=== PATIENT | male | born 1970 | race African-American/Black ===

== ENCOUNTER 2017-07-18 11:10 | Emergency (ER) | payer SELFPAY ==
[2017-07-18] MEDS ORDERED: Lidocaine 1% PF 5 ML VIAL ONE (11:59)
== END 2017-07-18 12:48 | disposition home or self-care (01) ==
LOC: ERS 11:10
DX: L02.211 Cutaneous abscess of abdominal wall (principal); E11.9 Type 2 diabetes mellitus without complications; E78.5 Hyperlipidemia, unspecified
CPT/HCPCS: 10060; J2001

== ENCOUNTER 2017-07-20 16:54 | Emergency (ER) | payer SELFPAY | END 2017-07-20 18:10 | disposition home or self-care (01) | LOC: ERS 16:54 | DX: L03.311 Cellulitis of abdominal wall (principal); E11.9 Type 2 diabetes mellitus without complications; E78.5 Hyperlipidemia, unspecified; I10 Essential (primary) hypertension | CPT/HCPCS: 99282 ==

== ENCOUNTER 2017-07-21 18:34 | Emergency (ER) | payer SELFPAY | END 2017-07-21 19:50 | disposition home or self-care (01) | LOC: ERS 18:34 | DX: L02.211 Cutaneous abscess of abdominal wall (principal); E11.9 Type 2 diabetes mellitus without complications; E78.5 Hyperlipidemia, unspecified; I10 Essential (primary) hypertension; Z79.891 Long term (current) use of opiate analgesic | CPT/HCPCS: 99282 ==

== ENCOUNTER 2017-10-03 10:58 | Emergency (ER) | payer SELFPAY ==
[2017-10-03 12:07] LABS: #Eosinphils 0.1 thou/uL (0.0-0.7); #Monocytes 0.3 thou/uL (0.11-0.59); #Neutrophils 2.3 thou/uL (1.40-6.50); %Basophils 0.2 % (0.0-1.0); %Eosinophils 2.3 % (0.0-10.0); %Lymphocytes 28.2 % (21.0-51.0); %Monocytes 7.2 % (0.0-10.0); Hematocrit 43.7 % (42.0-52.0); Mean Platelet Volume 8.3 fL (7.4-10.4); Red Blood Cell (RBC) Count 5.14 mill/uL (4.70-6.10); White Blood Cell (WBC) Count 3.6 thou/uL (4.8-10.8)
[2017-10-03 12:23] LABS: ALT (SGPT) 18 U/L (8-55); AST (SGOT) 18 U/L (5-34); Alkaline Phosphatase 94 U/L (40-150); Anion Gap 13 mmol/L (10-20); BUN (Urea Nitrogen) 13 mg/dL (8.9-20.6); Bilirubin, Total 0.8 mg/dL (0.2-1.2); Calc. Creatinine Clearance 0 mL/min (70-130); Calcium 9.3 mg/dL (7.8-10.44); Carbon Dioxide 23 mmol/L (22-29); Chloride 100 mmol/L (98-107); Estimated GFR-MDRD 61; Globulin 3.4 g/dL (2.4-3.5); Protein, Total 7.2 g/dL (6.0-8.3)
[2017-10-03] MEDS ORDERED: Insulin Regular 300 UNITS/3 ML VIAL ONE (14:13)
== END 2017-10-03 16:11 | disposition home or self-care (01) ==
LOC: ERS 10:58
DX: E11.65 Type 2 diabetes mellitus with hyperglycemia (principal); E78.5 Hyperlipidemia, unspecified; I10 Essential (primary) hypertension
CPT/HCPCS: 36415; 36416; 80053; 82010; 85025; 96374; J1815

== ENCOUNTER 2017-11-12 09:40 | Emergency (ER) | payer SELFPAY ==
[2017-11-12] MEDS ORDERED: Lidocaine 1% w/Epinephrine 1:100K 20 ML VIAL ONE (11:02)
== END 2017-11-12 11:58 | disposition home or self-care (01) ==
LOC: ERS 09:40
DX: L02.415 Cutaneous abscess of right lower limb (principal); L03.115 Cellulitis of right lower limb; E11.9 Type 2 diabetes mellitus without complications; E78.5 Hyperlipidemia, unspecified; I10 Essential (primary) hypertension; Z79.4 Long term (current) use of insulin
CPT/HCPCS: 10060; 87070; 87077; 87186; 87205; J2001

== ENCOUNTER 2018-02-05 18:48 | Emergency (ER) | payer MEDICAID ==
[2018-02-05] MEDS ORDERED: Ketorolac Tromethamine 60 MG/2 ML VIAL ONE (21:34)
== END 2018-02-05 21:54 | disposition home or self-care (01) ==
LOC: ERS 18:48
DX: S39.012A Strain of muscle, fascia and tendon of lower back, initial encounter (principal); E11.9 Type 2 diabetes mellitus without complications; E78.5 Hyperlipidemia, unspecified; I10 Essential (primary) hypertension; Z79.4 Long term (current) use of insulin; W19.XXXA Unspecified fall, initial encounter
CPT/HCPCS: 96372; J1885

== ENCOUNTER 2018-07-08 18:16 | Emergency (ER) | payer MEDICARE, MEDICAID ==
[2018-07-08 18:55] LABS: #Eosinphils 0.1 thou/uL (0.0-0.7); #Lymphocytes 0.9 thou/uL (1.20-3.40); #Monocytes 0.5 thou/uL (0.11-0.59); #Neutrophils 3.3 thou/uL (1.40-6.50); %Basophils 0.2 % (0.0-1.0); %Eosinophils 1.5 % (0.0-10.0); %Monocytes 10.7 % (0.0-10.0); %Neutrophils 68.6 % (42.0-75.0); Hemoglobin 12.9 g/dL (14.0-18.0); Mean Corpuscular HGB CONC 34.1 g/dL (32.0-36.0); Mean Corpuscular Hemoglobin 29.2 pg (27.0-31.0); Mean Corpuscular Volume 85.8 fL (78.0-98.0); Mean Platelet Volume 7.9 fL (7.4-10.4); Platelet Count 160 thou/uL (130-400); RBC Distribution Width 12.2 % (11.5-14.5); Red Blood Cell (RBC) Count 4.41 mill/uL (4.70-6.10); White Blood Cell (WBC) Count 4.8 thou/uL (4.8-10.8)
[2018-07-08 18:56] LABS: Bilirubin Negative (Negative); Blood, Urine Negative (Negative); Clarity CLEAR (Clear); Glucose, Urine (Dipstick) >=1000 mg/dL (Negative); Leukocyte Negative (Negative); Nitrite Negative (Negative); Protein, Urine (Dipstick) Negative (Neg-Trace); Specific Gravity, Urine 1.021 (1.002-1.036)
[2018-07-08 19:15] LABS: ALT (SGPT) 14 U/L (8-55); AST (SGOT) 13 U/L (5-34); Alkaline Phosphatase 89 U/L (40-150); Anion Gap 15 mmol/L (10-20); BUN (Urea Nitrogen) 14 mg/dL (8.9-20.6); Bilirubin, Total 0.7 mg/dL (0.2-1.2); Calc. Creatinine Clearance 0 mL/min (70-130); Calcium 9.5 mg/dL (7.8-10.44); Carbon Dioxide 21 mmol/L (22-29); Chloride 100 mmol/L (98-107); Estimated GFR-MDRD 67; Lipase 24 U/L (8-78); Potassium 4.4 mmol/L (3.5-5.1); Sodium 132 mmol/L (136-145)
[2018-07-08 19:24] LABS: Glucose 576 mg/dL (70-105)
[2018-07-08] MEDS ORDERED: Insulin Regular 300 UNITS/3 ML VIAL ONE (19:58)
--- NOTE | 2018-07-08 20:54 | ULT ---
TESTICULAR ULTRASOUND: HISTORY: Testicular pain. TECHNIQUE: Real-time imaging of the right and left testes was performed. FINDINGS: The right testicle measures approximately 2.4 cm in length, and the left testicle 2.9 cm. No testicu lar mass is seen. There is a left-sided hydrocele noted, with a smaller right hydrocele. The right epididymis is prominent, as compared to the left. The left appears enlarged. On Doppler evaluation with spectral analysis, normal flow is shown to the right testicle, with increa sed flow to the left epididymis and left testis. IMPRESSION: 1. Left-sided epididymis and orchitis. 2. Small bilateral hydroceles. Both testicles are slightly small. POS: [facility]
[2018-07-08] MEDS ORDERED: Lidocaine 1% PF 5 ML VIAL ONE (21:03)
[2018-07-08] MEDS ORDERED: cefTRIAXone\\ROCEPHIN 250 MG VIAL ONE (21:03)
[2018-07-08] MEDS ORDERED: Azithromycin 250 MG TAB ONE (21:03)
[2018-07-08] MEDS ORDERED: Ondansetron HCl/PF 4 MG/2 ML Vial ONE (21:03)
== END 2018-07-08 21:25 | disposition home or self-care (01) ==
LOC: ERS 18:16
DX: N45.2 Orchitis (principal); E11.9 Type 2 diabetes mellitus without complications; E78.5 Hyperlipidemia, unspecified; I10 Essential (primary) hypertension; Z79.4 Long term (current) use of insulin; Z79.899 Other long term (current) drug therapy
CPT/HCPCS: 36415; 36416; 76870; 80053; 81003; 83605; 83690; 85025; 87040; 93976; 96361; 96372; 96374; J0696; J1815; J2001; J2405

== ENCOUNTER 2018-09-21 08:31 | Emergency (ER) | payer MEDICARE, MEDICAID | END 2018-09-21 09:15 | disposition home or self-care (01) | LOC: ERS 08:31 | DX: L03.031 Cellulitis of right toe (principal); E11.9 Type 2 diabetes mellitus without complications; E78.5 Hyperlipidemia, unspecified; I10 Essential (primary) hypertension; Z79.899 Other long term (current) drug therapy; Z79.4 Long term (current) use of insulin | CPT/HCPCS: 99283 ==

== ENCOUNTER 2019-03-02 10:37 | Emergency (ER) | payer MEDICARE, MEDICAID | END 2019-03-02 11:13 | disposition home or self-care (01) | LOC: ERS 10:37 | DX: K04.7 Periapical abscess without sinus (principal); E11.9 Type 2 diabetes mellitus without complications; E78.5 Hyperlipidemia, unspecified; I10 Essential (primary) hypertension | CPT/HCPCS: 99282 ==

== ENCOUNTER 2019-03-26 19:30 | Emergency (ER) | payer MEDICARE, MEDICAID ==
[2019-03-26] MEDS ORDERED: traMADol HCl 50 MG TAB ONE (20:03)
== END 2019-03-26 20:07 | disposition home or self-care (01) ==
LOC: ERS 19:30
DX: K08.89 Other specified disorders of teeth and supporting structures (principal); E11.9 Type 2 diabetes mellitus without complications; E78.5 Hyperlipidemia, unspecified; Z79.4 Long term (current) use of insulin; Z79.899 Other long term (current) drug therapy
CPT/HCPCS: 99282

== ENCOUNTER 2019-04-20 09:56 | Emergency (ER) | payer MEDICARE, OTHER | END 2019-04-20 10:55 | disposition home or self-care (01) | LOC: ERS 09:56 | DX: H60.92 Unspecified otitis externa, left ear (principal); I10 Essential (primary) hypertension; E78.5 Hyperlipidemia, unspecified; F32.9 Major depressive disorder, single episode, unspecified; E11.9 Type 2 diabetes mellitus without complications | CPT/HCPCS: 99282 ==

== ENCOUNTER 2019-04-22 19:38 | Emergency (ER) | payer MEDICARE, MEDICAID | END 2019-04-22 20:41 | disposition home or self-care (01) | LOC: ERS 19:38 | DX: L02.212 Cutaneous abscess of back [any part, except buttock and flank] (principal); E11.9 Type 2 diabetes mellitus without complications; E78.5 Hyperlipidemia, unspecified; I10 Essential (primary) hypertension; F32.9 Major depressive disorder, single episode, unspecified; F17.210 Nicotine dependence, cigarettes, uncomplicated; Z71.6 Tobacco abuse counseling; Z79.899 Other long term (current) drug therapy | CPT/HCPCS: 99406 ==

== ENCOUNTER 2019-05-14 14:49 | Emergency (ER) | payer MEDICARE, OTHER ==
[2019-05-14] MEDS ORDERED: Ketorolac Tromethamine 30 MG/ML VIAL ONE (17:01)
--- NOTE | 2019-05-14 17:52 | RAD ---
LEFT KNEE FOUR VIEWS: 05/14/19 COMPARISON: None. HISTORY: Leg pain. FINDINGS: There is no displaced fracture or evidence of dislocation. No knee joint effusion. IMPRESSION: No acute findings. POS: [facility]
== END 2019-05-14 17:39 | disposition home or self-care (01) ==
LOC: ERS 14:49
DX: H10.023 Other mucopurulent conjunctivitis, bilateral (principal); M25.562 Pain in left knee; E11.9 Type 2 diabetes mellitus without complications; F32.9 Major depressive disorder, single episode, unspecified; F17.210 Nicotine dependence, cigarettes, uncomplicated; I10 Essential (primary) hypertension; Z79.4 Long term (current) use of insulin; Z79.899 Other long term (current) drug therapy
CPT/HCPCS: 96372; J1885

== ENCOUNTER 2019-06-12 17:47 | Emergency (ER) | payer MEDICARE, OTHER ==
[2019-06-12 18:24] LABS: #Eosinphils 0.1 thou/uL (0.0-0.7); #Lymphocytes 0.9 thou/uL (1.20-3.40); #Monocytes 0.5 thou/uL (0.11-0.59); #Neutrophils 5.2 thou/uL (1.40-6.50); %Basophils 0.7 % (0.0-1.0); %Eosinophils 0.8 % (0.0-10.0); %Lymphocytes 13.9 % (21.0-51.0); %Monocytes 6.9 % (0.0-10.0); %Neutrophils 77.7 % (42.0-75.0); Hemoglobin 13.7 g/dL (14.0-18.0); Mean Corpuscular HGB CONC 36.1 g/dL (32.0-36.0); Mean Corpuscular Hemoglobin 30.5 pg (27.0-31.0); Mean Corpuscular Volume 84.4 fL (78.0-98.0); Mean Platelet Volume 7.9 fL (7.4-10.4); Platelet Count 206 thou/uL (130-400); RBC Distribution Width 12.4 % (11.5-14.5); Red Blood Cell (RBC) Count 4.48 mill/uL (4.70-6.10); White Blood Cell (WBC) Count 6.6 thou/uL (4.8-10.8)
[2019-06-12 18:41] LABS: ALT (SGPT) 12 U/L (8-55); AST (SGOT) 16 U/L (5-34); Alkaline Phosphatase 111 U/L (40-150); Anion Gap 18 mmol/L (10-20); BUN (Urea Nitrogen) 17 mg/dL (8.9-20.6); Bilirubin, Total 0.7 mg/dL (0.2-1.2); Calc. Creatinine Clearance 0 mL/min (70-130); Calcium 9.8 mg/dL (7.8-10.44); Carbon Dioxide 23 mmol/L (22-29); Chloride 99 mmol/L (98-107); Estimated GFR-MDRD 37; Globulin 3.2 g/dL (2.4-3.5); Glucose 265 mg/dL (70-105); Potassium 3.8 mmol/L (3.5-5.1); Protein, Total 7.2 g/dL (6.0-8.3); Sodium 136 mmol/L (136-145)
[2019-06-12 19:06] LABS: Acetaminophen Less than 6.0 mcg/mL (10.0-30.0); Alcohol 14 mg/dL (Less than 10); Salicylate Less than 8.0 mg/dL (15.0-30.0)
== END 2019-06-12 20:34 | disposition home or self-care (01) ==
LOC: ERS 17:47
DX: E86.0 Dehydration (principal); N17.9 Acute kidney failure, unspecified; R55 Syncope and collapse; F32.9 Major depressive disorder, single episode, unspecified; E11.9 Type 2 diabetes mellitus without complications; E78.5 Hyperlipidemia, unspecified; I10 Essential (primary) hypertension; F17.210 Nicotine dependence, cigarettes, uncomplicated; Z79.4 Long term (current) use of insulin; Z79.899 Other long term (current) drug therapy
CPT/HCPCS: 36416; 80053; 80307; 82550; 84484; 85025; 85379; 93005; 96360; 96361

== ENCOUNTER 2019-09-08 18:05 | Emergency (ER) | payer MEDICARE, MEDICAID ==
[2019-09-08 18:49] LABS: #Eosinphils 0.1 thou/uL (0.0-0.7); #Lymphocytes 0.6 thou/uL (1.20-3.40); #Monocytes 0.4 thou/uL (0.11-0.59); #Neutrophils 1.9 thou/uL (1.40-6.50); %Basophils 1.1 % (0.0-1.0); %Eosinophils 1.9 % (0.0-10.0); %Lymphocytes 20.5 % (21.0-51.0); %Monocytes 13.5 % (0.0-10.0); Hemoglobin 12.8 g/dL (14.0-18.0); Mean Corpuscular HGB CONC 35.4 g/dL (32.0-36.0); Mean Corpuscular Hemoglobin 30.4 pg (27.0-31.0); Mean Platelet Volume 7.8 fL (7.4-10.4); Platelet Count 144 thou/uL (130-400); RBC Distribution Width 12.2 % (11.5-14.5)
--- NOTE | 2019-09-08 19:03 | RAD ---
XR Chest Pa Lat STANDARD History: Inflammation and cough Comparison: None. Findings: Lungs are clear. No pneumothorax or effusion. Cardiac silhouette and mediastinal contours a re within normal limits. Impression: No acute intrathoracic abnormality.
[2019-09-08 19:13] LABS: ALT (SGPT) 12 U/L (8-55); AST (SGOT) 15 U/L (5-34); Albumin 3.7 g/dL (3.5-5.0); Alkaline Phosphatase 85 U/L (40-110); Anion Gap 15 mmol/L (10-20); BUN (Urea Nitrogen) 8 mg/dL (8.9-20.6); Bilirubin, Total 0.6 mg/dL (0.2-1.2); Calc. Creatinine Clearance 0 mL/min (70-130); Calcium 8.6 mg/dL (7.8-10.44); Carbon Dioxide 22 mmol/L (22-29); Chloride 99 mmol/L (98-107); Estimated GFR-MDRD 60; Globulin 2.8 g/dL (2.4-3.5); Lipase 21 U/L (8-78); Potassium 4.1 mmol/L (3.5-5.1); Protein, Total 6.5 g/dL (6.0-8.3); Sodium 132 mmol/L (136-145)
[2019-09-08 19:16] LABS: Glucose 657 mg/dL (70-105)
[2019-09-08] MEDS ORDERED: Insulin Regular 300 UNITS/3 ML VIAL ONE ×2 (19:23→19:27)
== END 2019-09-08 22:00 | disposition home or self-care (01) ==
LOC: ERS 18:05
DX: E11.65 Type 2 diabetes mellitus with hyperglycemia (principal); J20.9 Acute bronchitis, unspecified; E78.5 Hyperlipidemia, unspecified; F32.9 Major depressive disorder, single episode, unspecified; Z87.891 Personal history of nicotine dependence; Z79.4 Long term (current) use of insulin; Z79.899 Other long term (current) drug therapy
CPT/HCPCS: 36416; 71046; 80053; 83690; 85025; J1815

== ENCOUNTER 2019-12-03 10:39 | Emergency (ER) | payer MEDICARE, OTHER | END 2019-12-03 12:00 | disposition left against medical advice (07) | LOC: ERS 10:39 | DX: Z53.21 Procedure and treatment not carried out due to patient leaving prior to being seen by health care provider (principal) ==

== ENCOUNTER 2019-12-26 13:59 | Observation (INO) | payer MEDICARE, MEDICAID ==
[2019-12-26 15:15] LABS: #Monocytes 0.4 thou/uL (0.11-0.59); #Neutrophils 3.1 thou/uL (1.40-6.50); %Basophils 0.4 % (0.0-1.0); %Eosinophils 1.1 % (0.0-10.0); %Lymphocytes 22.6 % (21.0-51.0); %Monocytes 8.8 % (0.0-10.0); %Neutrophils 67.1 % (42.0-75.0); Hemoglobin 13.5 g/dL (14.0-18.0); Mean Corpuscular HGB CONC 35.8 g/dL (32.0-36.0); Mean Corpuscular Hemoglobin 31.9 pg (27.0-31.0); Mean Corpuscular Volume 89.2 fL (78.0-98.0); Mean Platelet Volume 8.3 fL (7.4-10.4); Platelet Count 158 thou/uL (130-400); RBC Distribution Width 12.7 % (11.5-14.5); Red Blood Cell (RBC) Count 4.23 mill/uL (4.70-6.10); White Blood Cell (WBC) Count 4.6 thou/uL (4.8-10.8)
[2019-12-26 15:35] LABS: ALT (SGPT) 10 U/L (8-55); AST (SGOT) 10 U/L (5-34); Albumin 3.7 g/dL (3.5-5.0); Alkaline Phosphatase 83 U/L (40-110); Anion Gap 15 mmol/L (10-20); BUN (Urea Nitrogen) 11 mg/dL (8.9-20.6); Bilirubin, Total 0.9 mg/dL (0.2-1.2); Calc. Creatinine Clearance 0 mL/min (70-130); Calcium 8.8 mg/dL (7.8-10.44); Carbon Dioxide 24 mmol/L (22-29); Chloride 97 mmol/L (98-107); Estimated GFR-MDRD 61; Globulin 2.9 g/dL (2.4-3.5); Lipase 25 U/L (8-78); Potassium 3.8 mmol/L (3.5-5.1); Protein, Total 6.6 g/dL (6.0-8.3); Sodium 132 mmol/L (136-145)
--- NOTE | 2019-12-26 15:41 | RAD ---
CHEST 1 VIEW: Date: 12/26/2019 HISTORY: Chest pain, abdominal pain. FINDINGS: The lungs are clear. No pneumothorax or effusion. Cardiac silhouette and mediastinal contours are sim ilar. No acute osseous abnormality. There appears to be a chronic lower lobe bronchiectasis. IMPRESSION: Findings of chronic bilateral lower lobe bronchiectasis. No acute intrathoracic abnormality. POS: [facility]
[2019-12-26 15:42] LABS: Glucose 666 mg/dL (70-105)
[2019-12-26] MEDS ORDERED: Ondansetron PF 4 MG/2 ML Vial ONE (15:55)
[2019-12-26] MEDS ORDERED: Fentanyl 100 MCG/2 ML VIAL ONE (15:55)
[2019-12-26 16:45] LABS: Bilirubin Negative (Negative); Blood, Urine Negative (Negative); Clarity Clear (Clear); Glucose, Urine (Dipstick) Greater than 1000 mg/dL (Negative); Leukocyte Negative Leu/uL (Negative); Nitrite Negative (Negative); Protein, Urine (Dipstick) Negative (Neg-Trace); Urobilinogen Normal mg/dL (Less than 2)
--- NOTE | 2019-12-26 17:47 | CT ---
CT ABDOMEN AND PELVIS WITH IV CONTRAST: 12/26/19 HISTORY: Lower abdominal pain. FINDINGS: The lung bases are clear. The liver, pancreas, adrenal glands and right kidney are normal. There is a 3.8 cm cortical cyst in the left kidney. No calcified gallstones are seen. The spleen measures 13 cm in length. No free air or free fluid or lymphadenopathy is seen in the abdomen or pelvis. There is thickening in the wall of the urinary bladder. IMPRESSION: Wall thickening of the urinary bladder. Clinically correlate for cystitis. Urologic consultation and cystoscopy may be helpful. POS: [facility]
[2019-12-26] MEDS ORDERED: Metoclopramide HCl 10 MG/2 ML VIAL ONE (18:01)
[2019-12-26] MEDS ORDERED: Insulin Regular 300 UNITS/3 ML VIAL ONE (18:55)
[2019-12-26] MEDS ORDERED: Ondansetron PF 4 MG/2 ML Vial IVP PRN (21:41)
[2019-12-26] MEDS ORDERED: HYDROcodone/Acetaminophen 5/325 mg Tablet PO PRN ×2 (21:41)
[2019-12-26] MEDS ORDERED: Ondansetron ODT 4 MG TAB SL PRN (21:41)
[2019-12-26] MEDS ORDERED: Acetaminophen 325 MG TAB PO PRN (21:41)
[2019-12-27] MEDS: Sodium Chloride 0.9% 1,000 ML IV SCH ×2 (02:02→07:34)
[2019-12-27 02:54] VITALS: BMI 25.9
[2019-12-27] MEDS ORDERED: Acetaminophen 325 MG TAB PO PRN (08:51)
[2019-12-27] MEDS ORDERED: HYDROcodone/Acetaminophen 5/325 mg Tablet PO PRN (08:51)
[2019-12-27] MEDS ORDERED: hydrALAZINE 20 MG/ML VIAL SLOW IVP PRN (08:51)
[2019-12-27] MEDS ORDERED: Dextrose 50% Abboject 50 ML SYRINGE SLOW IVP PRN (08:51)
[2019-12-27] MEDS ORDERED: Ondansetron PF 4 MG/2 ML Vial IVP PRN (08:51)
[2019-12-27] MEDS ORDERED: Ondansetron ODT 4 MG TAB PO PRN (08:51)
[2019-12-27] MEDS ORDERED: HumaLOG 300 UNITS/3 ML VIAL SC PRN ×2 (08:51)
[2019-12-27] MEDS ORDERED: Dextrose 5% in Water 1,000 ML IV PRN (08:51)
[2019-12-27] MEDS ORDERED: Enoxaparin Sodium 40 MG/0.4 ML SYRINGE SC SCH (09:00)
--- NOTE | 2019-12-27 09:27 | HP ---
PRIMARY CARE PHYSICIAN: At the [facility]. He forgot the doctor's name. CHIEF COMPLAINT: Abdominal pain and vomiting. HISTORY OF PRESENT ILLNESS: Mr. Donahue is a pleasant 49-year-old gentleman, who has a history of diabetes mellitus, type 2. He says that he has been having abdominal pain and vomiting off and on for about a month now. He says that it is very intermittent and says that he notices it usually after he eats. He says that his stomach will fill full and then start hurting and usually it is a cramping like pain. It will last up to an hour and then typically goes away. It does not happen every day, but about 3 to 4 times a week. He says as a result, he has not been eating much and he says he has lost about 40 pounds in the last few months. He denies any diarrhea, but he has noticed vomiting, what he believes looks like some blood. As a result of these symptoms, he came to the ER for evaluation. In the ER, he was found to have an extremely high blood glucose, but he was not acidotic. He was given a total of 2 L of fluids and given some IV insulin and fentanyl and he says that his symptoms have actually improved and that he is asking to try to eat something. The patient also noted some chest tightness off and on, but otherwise no complaints. REVIEW OF SYSTEMS: All systems are reviewed and are negative except for that mentioned in the History of Present Illness. PAST MEDICAL HISTORY: Significant for diabetes, hypertension, and hypercholesterolemia. 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 PAST SURGICAL HISTORY: He has had foot surgery. ALLERGIES: NO KNOWN DRUG ALLERGIES. SOCIAL HISTORY: He is single, has no children. He smokes about a pack and a half of cigarettes a day for about a year or two and he also drinks 12 pack of beer a day and he says he has been doing that for several years as well. FAMILY HISTORY: Significant for cancer in his sister as well as diabetes mellitus. CURRENT MEDICATIONS: Include metformin. He says a cholesterol medicine and a blood pressure medicine, but he does not know the names. PHYSICAL EXAMINATION: GENERAL: He is alert and oriented. He appears to be in no acute distress. He is well developed with the exception of his lower extremities. He is in no acute distress. VITAL SIGNS: Blood pressure was 126/79, heart rate 98, respiratory rate of 18, and temperature is 98. HEENT: Pupils are equal, round, and reactive to light. Extraocular muscles are intact. His sclerae are anicteric. Throat; there is no erythema, no exudates. NECK: No adenopathy. No bruits. LUNGS: Clear to auscultation. There are no wheezing, no rales, no rhonchi. CARDIOVASCULAR: He has a normal S1 and S2. No S3 or S4. No murmurs, clicks, or rubs. ABDOMEN: Soft. He had some mild suprapubic tenderness, but there is no rebound, no guarding. He does have a very small umbilical hernia, which is easily reducible, but no appreciable masses. EXTREMITIES: On his lower extremities, he has severe muscle atrophy from the hips down and also some foot deformities. There is no edema. NEUROLOGICAL: Grossly nonfocal. SKIN AND INTEGUMENT: Other than some calluses on the bottom of his feet. There are no other skin lesions. LABORATORY RESULTS: White blood cell count is 4.6, hemoglobin 13.5, hematocrit is 37.7, and platelet count is 158. Sodium was 132; potassium 3.8; chloride is 97; CO2 is 24; BUN of 11; creatinine 1.48; and glucose was 666, currently is 108. IMAGING DATA: He had a CT scan of the abdomen and pelvis, which was negative for any significant changes other than some thickening of the urinary bladder. ASSESSMENT AND PLAN: 1. This is a pleasant 49-year-old gentleman, who presented to the emergency room complaining of abdominal pain and nausea and vomiting. The patient's symptoms have since completely resolved and as I was walking in the room, the patient was sitting up, watching TV and ordering his breakfast. I explained to him that we can make him n.p.o. now and forego eating breakfast and consult GI for evaluation given his signs and symptoms and weight loss. However, the patient was reluctant to do this. He seems anxious to eat. He tells me he has both Medicare and Medicaid. Since his symptoms have been more or less chronic over the last 2 months, I think this is a reasonable approach to let him eat, see if he can keep the food down and if so, then he can have an outpatient GI workup. 2. For the CT inflammatory changes of the bladder, I again explained that he should have a urological workup. This again can be done in the outpatient setting. 3. Chest tightness. This has been off and on for some time and again, I recommend he should talk with his primary care physician about getting an outpatient stress test. This was all written down to him and given to him on a piece of paper, so that he could take it to his primary care physician and will also be outlined in his discharge paperwork should he go home today. Job ID: [id number]
[2019-12-27 14:47] VITALS: BP 122/80; TEMP 98
[2019-12-27] MEDS ORDERED: metFORMIN 500 MG TAB PO SCH (17:00)
--- NOTE | 2019-12-28 00:07 | DIS ---
DATE OF ADMISSION: 12/26/2019 DATE OF DISCHARGE: 12/27/2019 PRIMARY CARE PHYSICIAN: Through the [facility]. DISCHARGE DISPOSITION: Home. DISCHARGE DIAGNOSES: 1. Abdominal pain and nausea. 2. Diabetes mellitus type 2, poorly controlled. 3. Hypertension. DISCHARGE MEDICATIONS: Metformin 1000 mg twice daily and the patient is to continue his home blood pressure medication. We did not have the dose or name. PROCEDURES DONE DURING ADMISSION: The patient had a CT scan of the abdomen and pelvis showing some thickening of the urinary bladder. CODE STATUS: Full code. ALLERGIES: NO KNOWN DRUG ALLERGIES. HOSPITAL COURSE: Mr. Donahue is a pleasant 49-year-old gentleman, who has a history of diabetes mellitus type 2 and congenital hypoplasia in both of his legs. He was admitted to the hospital after having abdominal pain and nausea and vomiting, the full details of which are outlined in the history of present illness. His symptoms have actually been off and on for several months and by the time I saw the patient, his symptoms had almost completely resolved. He elected to give a trial of eating and be discharged home and to have outpatient GI evaluation. This seemed reasonable given the chronicity of his symptoms and there was no current warning symptoms now. He also had some thickening of the urinary bladder on CT scan and I recommended that he undergo outpatient urological evaluation for this and also recommend an outpatient stress test. The patient says he is able to get these things done. He has both Medicare and Medicaid and at the time of discharge, he was clinically stable. Job ID: [id number]
--- NOTE | 2019-12-28 15:40 | EKG ---
Test Reason : Blood Pressure : / mmHG Vent. Rate : 093 BPM Atrial Rate : 093 BPM P-R Int : 120 ms QRS Dur : 084 ms QT Int : 358 ms P-R-T Axes : 045 041 048 degrees QTc Int : 445 ms Normal sinus rhythm Normal ECG Confirmed by MARCIA DEL ROSARIO M.D. ([id number]), embossograph operator UNIQUE KEITH ([id number] on 12/28/2019 3:39:50 PM Referred By: Confirmed By:MARCIA DEL ROSARIO M.D.
== END 2019-12-27 15:30 | disposition home or self-care (01) ==
LOC: ERS 13:59 → T4-B 18:46
PROVIDERS: ADMIT Emergency Medicine; ATTEND Emergency Medicine
DX: R10.9 Unspecified abdominal pain (principal); R11.2 Nausea with vomiting, unspecified; E11.9 Type 2 diabetes mellitus without complications; I10 Essential (primary) hypertension; E78.00 Pure hypercholesterolemia, unspecified; F17.210 Nicotine dependence, cigarettes, uncomplicated; R07.89 Other chest pain; Q72.93 Unspecified reduction defect of lower limb, bilateral; Z79.84 Long term (current) use of oral hypoglycemic drugs; Z79.899 Other long term (current) drug therapy
CPT/HCPCS: 71045; 74177; 80053; 81003; 82010; 82962 ×2; 83690; 84484; 85025; 87040; 87086; 90732; 93005; 96361 ×3; 96365; 96372; 96375; 99285; G0009; G0378 ×3; 36415; 36416; 90471; J1650; J1815; J2405; J2765; J3010; Q0162

== ENCOUNTER 2023-01-24 08:33 | Outpatient (CLI) | payer MEDICAID, MEDICARE, OTHER | END 2023-01-24 08:34 | disposition home or self-care (01) | LOC: DTY/OP 08:33 | PROVIDERS: ATTEND Family Medicine Sports Medicine | DX: E11.65 Type 2 diabetes mellitus with hyperglycemia (principal) | CPT/HCPCS: 97802 ==

== ENCOUNTER 2023-02-07 10:12 | Outpatient (CLI) | payer OTHER | END 2023-02-07 10:13 | disposition home or self-care (01) | PROVIDERS: ATTEND Family Medicine Sports Medicine | DX: Q89.9 Congenital malformation, unspecified (principal) ==

== ENCOUNTER 2024-11-14 18:21 | Inpatient (IN) | payer OTHER, MEDICAID ==
[2024-11-14 20:22] LABS: #Basophils Less than 0.03 10x3/uL (0.0-0.2); #Eosinophils Less than 0.03 10x3/uL (0.0-0.7); %Basophils 0.1 % (0.0-1.0); %Lymphocytes 6.5 % (21.0-51.0); %Monocytes 10.9 % (0.0-10.0); %Neutrophils 82.2 % (42.0-75.0); Hematocrit 37.3 % (42.0-52.0); Hemoglobin 13.6 g/dL (14.0-18.0); Mean Corpuscular HGB CONC 36.5 g/dL (32.0-36.0); Mean Corpuscular Hemoglobin 31.6 pg (27.0-31.0); Mean Corpuscular Volume 86.5 fL (78.0-98.0); Mean Platelet Volume 10.4 fL (7.4-10.4); Platelet Count 151 10x3/uL (130-400); Red Blood Cell (RBC) Count 4.31 mill/uL (4.70-6.10)
[2024-11-14 20:42] LABS: ALT (SGPT) 9 U/L (Less than 45); AST (SGOT) 22 U/L (11-34); Albumin 3.1 g/dL (3.1-4.5); Alkaline Phosphatase 78 U/L (40-110); Anion Gap 13 mmol/L (10-20); BUN (Urea Nitrogen) 14 mg/dL (8.4-25.7); Bilirubin, Total 0.9 mg/dL (0.3-1.2); Calc. Creatinine Clearance 0 mL/min (70-130); Calcium 8.2 mg/dL (7.8-10.44); Carbon Dioxide 20 mmol/L (22-29); Chloride 105 mmol/L (98-107); Estimated GFR 50; Globulin 3.7 g/dL (2.4-3.5); Glucose 322 mg/dL (70-105); Potassium 3.2 mmol/L (3.5-5.1); Protein, Total 6.8 g/dL (6.0-8.3); Sodium 135 mmol/L (136-145)
[2024-11-14] MEDS ORDERED: Morphine 4 MG/ML VIAL ONE (20:46)
[2024-11-14] MEDS ORDERED: Cefepime 2 GM VIAL ONE (20:46)
[2024-11-14] MEDS ORDERED: Sodium Chloride 0.9% 100 ML ONE (20:47)
[2024-11-14] MEDS ORDERED: Ketorolac Tromethamine 30 MG (1 mL) VIAL ONE (20:47)
[2024-11-14] MEDS ORDERED: Potassium Chloride 20 MEQ TAB ONE (22:15)
[2024-11-14] MEDS ORDERED: Dextrose 50% Abboject 50 ML SYRINGE SLOW IVP PRN (22:19)
[2024-11-14] MEDS ORDERED: Ondansetron PF 4 MG/2 ML Vial IVP PRN ×2 (22:19→22:30)
[2024-11-14] MEDS ORDERED: Ondansetron ODT 4 MG TAB PO PRN (22:19)
[2024-11-14] MEDS ORDERED: Dextrose 5% in Water 1,000 ML IV PRN (22:19)
[2024-11-14] MEDS ORDERED: Glucagon 1 MG/ML KIT IM PRN (22:19)
[2024-11-14] MEDS ORDERED: Ondansetron ODT 4 MG TAB SL PRN (22:30)
[2024-11-14] MEDS ORDERED: Acetaminophen 325 MG TAB PO PRN (22:30)
[2024-11-14] MEDS: Vancomycin (BATCH) 1.75 GM in Premix 1 BAG IVPB SCH (23:33)
[2024-11-15] MEDS: Insulin Lispro 100 UNIT/ML 10 ML VIAL SC PRN ×2 (00:03→17:25)
[2024-11-15] MEDS: Sodium Chloride 0.9% 1,000 ML IV SCH (01:58)
[2024-11-15] MEDS: Potassium Chloride 20 MEQ TAB PO SCH (01:58)
[2024-11-15] MEDS: traMADol HCl 50 MG TAB PO PRN (02:04)
[2024-11-15 02:07] VITALS: BMI 25.0
[2024-11-15 04:30] LABS: #Basophils Less than 0.03 10x3/uL (0.0-0.2); #Eosinophils Less than 0.03 10x3/uL (0.0-0.7); %Basophils 0.2 % (0.0-1.0); %Eosinophils 0.2 % (0.0-10.0); %Lymphocytes 6.6 % (21.0-51.0); %Monocytes 11.2 % (0.0-10.0); %Neutrophils 81.5 % (42.0-75.0); Hematocrit 35.8 % (42.0-52.0); Hemoglobin 12.6 g/dL (14.0-18.0); Mean Corpuscular HGB CONC 35.2 g/dL (32.0-36.0); Mean Corpuscular Hemoglobin 31.2 pg (27.0-31.0); Mean Corpuscular Volume 88.6 fL (78.0-98.0); Platelet Count 130 10x3/uL (130-400); Red Blood Cell (RBC) Count 4.04 mill/uL (4.70-6.10)
[2024-11-15 04:41] LABS: Vancomycin, Random 26.9 ug/mL (See Comment)
[2024-11-15 04:43] LABS: ALT (SGPT) 9 U/L (Less than 45); AST (SGOT) 19 U/L (11-34); Albumin 2.8 g/dL (3.1-4.5); Alkaline Phosphatase 74 U/L (40-110); Anion Gap 13 mmol/L (10-20); BUN (Urea Nitrogen) 11 mg/dL (8.4-25.7); Bilirubin, Total 0.8 mg/dL (0.3-1.2); Calc. Creatinine Clearance 66 mL/min (70-130); Calcium 7.9 mg/dL (7.8-10.44); Carbon Dioxide 21 mmol/L (22-29); Chloride 109 mmol/L (98-107); Estimated GFR 64; Globulin 3.3 g/dL (2.4-3.5); Glucose 98 mg/dL (70-105); Potassium 3.8 mmol/L (3.5-5.1); Protein, Total 6.1 g/dL (6.0-8.3); Sodium 139 mmol/L (136-145)
[2024-11-15] MEDS: Clindamycin/D5W 900 MG in Premix 1 BAG IVPB SCH (05:34)
[2024-11-15] MEDS: HYDROcodone/Acetaminophen 10/325 mg Tablet PO SCH (05:34)
[2024-11-15] MEDS: Cefepime 2 GM in Sodium Chloride 0.9% 100 ML IVPB SCH (08:55)
[2024-11-15] MEDS ORDERED: Vancomycin 1 GM in Sodium Chloride 0.9% 250 ML 250 ML IVPB SCH (09:00)
[2024-11-15] MEDS: FLU (Fluarix Triv) TS24-25(6MOS UP)/PF 45 MCG/0.5 ML Syringe IM ONE (09:04)
[2024-11-15] MEDS: Enoxaparin 40 MG (0.4 mL) SYRINGE SC SCH (09:04)
[2024-11-15] MEDS: Acetaminophen 325 MG TAB PO PRN (20:07)
[2024-11-15] MEDS: Vancomycin 1.5 GRAM/300 ML BAG 1.5 GM in Premix 1 BAG IVPB SCH (23:28)
[2024-11-16] MEDS: Vancomycin (BATCH) 1.5 GM in Premix 1 BAG IVPB SCH (07:20)
[2024-11-16] MEDS: Insulin Glargine 30 UNITS/0.3 ML VIAL SC SCH (08:24)
[2024-11-16] MEDS ORDERED: Vancomycin 1.5 GRAM/300 ML BAG 1.5 GM in Premix 1 BAG IVPB SCH (22:00)
[2024-11-17 06:07] LABS: #Basophils Less than 0.03 10x3/uL (0.0-0.2); #Eosinophils Less than 0.03 10x3/uL (0.0-0.7); %Basophils 0.1 % (0.0-1.0); %Eosinophils 0.1 % (0.0-10.0); %Monocytes 15.9 % (0.0-10.0); %Neutrophils 74.6 % (42.0-75.0); Hematocrit 33.8 % (42.0-52.0); Mean Corpuscular HGB CONC 35.5 g/dL (32.0-36.0); Mean Corpuscular Hemoglobin 30.7 pg (27.0-31.0); Mean Corpuscular Volume 86.4 fL (78.0-98.0); Mean Platelet Volume 9.7 fL (7.4-10.4); Platelet Count 166 10x3/uL (130-400); RBC Distribution Width 12.1 % (11.5-14.5); Red Blood Cell (RBC) Count 3.91 mill/uL (4.70-6.10)
[2024-11-17 06:23] LABS: Anion Gap 12 mmol/L (10-20); BUN (Urea Nitrogen) 7 mg/dL (8.4-25.7); Calc. Creatinine Clearance 88 mL/min (70-130); Carbon Dioxide 21 mmol/L (22-29); Chloride 108 mmol/L (98-107); Estimated GFR 90; Glucose 155 mg/dL (70-105); Potassium 3.6 mmol/L (3.5-5.1); Sodium 137 mmol/L (136-145)
[2024-11-18 10:36] LABS: #Basophils Less than 0.03 10x3/uL (0.0-0.2); #Eosinophils Less than 0.03 10x3/uL (0.0-0.7); %Basophils 0.1 % (0.0-1.0); %Eosinophils 0.1 % (0.0-10.0); %Lymphocytes 6.4 % (21.0-51.0); %Monocytes 17.7 % (0.0-10.0); Hemoglobin 12.1 g/dL (14.0-18.0); Mean Corpuscular HGB CONC 35.6 g/dL (32.0-36.0); Mean Corpuscular Hemoglobin 30.6 pg (27.0-31.0); Mean Corpuscular Volume 85.9 fL (78.0-98.0); Mean Platelet Volume 10.1 fL (7.4-10.4); Platelet Count 190 10x3/uL (130-400); Red Blood Cell (RBC) Count 3.96 mill/uL (4.70-6.10)
[2024-11-18] MEDS: Vancomycin (BATCH) 1.75 GM in Premix 1 BAG IVPB SCH (15:48)
[2024-11-19] MEDS: Vancomycin 1 GM in Premix 1 BAG IVPB SCH (05:01)
[2024-11-19 05:32] LABS: #Basophils Less than 0.03 10x3/uL (0.0-0.2); %Basophils 0.2 % (0.0-1.0); %Eosinophils 0.4 % (0.0-10.0); %Lymphocytes 11.5 % (21.0-51.0); %Monocytes 17.8 % (0.0-10.0); %Neutrophils 68.9 % (42.0-75.0); Hematocrit 35.2 % (42.0-52.0); Hemoglobin 12.6 g/dL (14.0-18.0); Mean Corpuscular HGB CONC 35.8 g/dL (32.0-36.0); Mean Corpuscular Hemoglobin 30.7 pg (27.0-31.0); Mean Corpuscular Volume 85.6 fL (78.0-98.0); Mean Platelet Volume 9.6 fL (7.4-10.4); Platelet Count 188 10x3/uL (130-400); RBC Distribution Width 12.2 % (11.5-14.5); Red Blood Cell (RBC) Count 4.11 mill/uL (4.70-6.10)
[2024-11-19 05:46] LABS: Anion Gap 13 mmol/L (10-20); BUN (Urea Nitrogen) 7 mg/dL (8.4-25.7); Calc. Creatinine Clearance 95 mL/min (70-130); Calcium 7.9 mg/dL (7.8-10.44); Carbon Dioxide 22 mmol/L (22-29); Chloride 106 mmol/L (98-107); Estimated GFR 99; Glucose 71 mg/dL (70-105); Potassium 3.6 mmol/L (3.5-5.1); Sodium 137 mmol/L (136-145)
[2024-11-19 05:48] LABS: Vancomycin, Random 22.6 ug/mL (See Comment)
[2024-11-19 09:21] LABS: HIV (1/2) Antibody/Antigen NONREACTIVE (NonReactive); HIV 1/2 INDEX 0.04 S/CO (<1.00); Hep C Index 0.11 S/CO (0-0.79)
[2024-11-19 09:52] LABS: HBsAg Index 4267.25 S/CO (0-0.99); Hep B Surf Ag Reflx Confirmation S/CO (NonReactive)
[2024-11-19 10:01] LABS: Hep C IgG Ab NonReactive S/CO (NonReactive)
[2024-11-19] MEDS ORDERED: Iopamidol 370 76% 100 ML VIAL ONE (12:44)
[2024-11-19] MEDS: Insulin Glargine 30 UNITS/0.3 ML VIAL SC SCH (13:59)
[2024-11-19] MEDS: metroNIDAZOLE 500 MG in Premix 1 BAG IVPB SCH (13:59)
[2024-11-19] MEDS: Vancomycin HCl 750 MG in Sodium Chloride 0.9% 250 ML 250 ML IVPB SCH (17:37)
[2024-11-20 07:39] LABS: Hep B Surface AG-Rflx Sendout Confirm. indicated (Negative)
[2024-11-20] MEDS ORDERED: Bupivacaine PF 0.5% 30 ML VIAL ONE (10:50)
[2024-11-20] MEDS ORDERED: PROPOFOL 20 ML ONE (10:59)
[2024-11-20] MEDS ORDERED: Lidocaine 1% PF 5 ML VIAL ONE (10:59)
[2024-11-20] MEDS ORDERED: Midazolam HCl 2 mg/2 ml Vial ONE (10:59)
[2024-11-20] MEDS ORDERED: fentaNYL PF 100 MCG/2 ML SYRINGE ONE (10:59)
[2024-11-20] MEDS ORDERED: Ondansetron PF 4 MG/2 ML Vial ONE (10:59)
[2024-11-20] MEDS ORDERED: fentaNYL 50 mcg/mL 1 mL Vial SLOW IVP PRN (11:33)
[2024-11-20] MEDS ORDERED: fentaNYL 50 mcg/mL 1 mL Vial ONE (12:13)
[2024-11-21 06:25] LABS: #Basophils 0.03 10x3/uL (0.0-0.2); %Basophils 0.3 % (0.0-1.0); %Eosinophils 0.3 % (0.0-10.0); %Lymphocytes 8.9 % (21.0-51.0); %Neutrophils 77.3 % (42.0-75.0); Hematocrit 36.8 % (42.0-52.0); Hemoglobin 12.7 g/dL (14.0-18.0); Mean Corpuscular HGB CONC 34.5 g/dL (32.0-36.0); Platelet Count 135 10x3/uL (130-400); RBC Distribution Width 12.3 % (11.5-14.5); Red Blood Cell (RBC) Count 4.23 mill/uL (4.70-6.10)
[2024-11-21 06:41] LABS: Vancomycin, Random 10.2 ug/mL (See Comment)
[2024-11-21 07:00] LABS: HBSAB Concentration Less than 8.00 mIU/mL; Hep B Surf AB NONREACTIVE (NonReactive)
[2024-11-21 23:33] VITALS: BMI 25.0
[2024-11-22 06:13] LABS: Hepatitis B little e Antigen Negative (Negative)
[2024-11-22 06:58] LABS: #Basophils Less than 0.03 10x3/uL (0.0-0.2); %Basophils 0.2 % (0.0-1.0); %Eosinophils 0.6 % (0.0-10.0); %Lymphocytes 11.1 % (21.0-51.0); %Monocytes 9.9 % (0.0-10.0); %Neutrophils 76.8 % (42.0-75.0); Hemoglobin 11.5 g/dL (14.0-18.0); Mean Corpuscular HGB CONC 34.8 g/dL (32.0-36.0); Mean Corpuscular Hemoglobin 30.3 pg (27.0-31.0); Mean Corpuscular Volume 87.1 fL (78.0-98.0); Mean Platelet Volume 9.2 fL (7.4-10.4); Platelet Count 143 10x3/uL (130-400); RBC Distribution Width 12.1 % (11.5-14.5); Red Blood Cell (RBC) Count 3.79 mill/uL (4.70-6.10)
[2024-11-22 07:13] LABS: Anion Gap 15 mmol/L (10-20); BUN (Urea Nitrogen) 7 mg/dL (8.4-25.7); Calc. Creatinine Clearance 93 mL/min (70-130); Calcium 8.2 mg/dL (7.8-10.44); Carbon Dioxide 24 mmol/L (22-29); Chloride 106 mmol/L (98-107); Estimated GFR 97; Glucose 156 mg/dL (70-105); Potassium 3.5 mmol/L (3.5-5.1); Sodium 141 mmol/L (136-145)
[2024-11-22] MEDS: fentaNYL 50 mcg/mL 1 mL Vial SLOW IVP PRN (14:06)
[2024-11-23 07:57] LABS: Vancomycin, Random 10.8 ug/mL (See Comment)
[2024-11-23] MEDS ORDERED: HYDROcodone/Acetaminophen 5/325 mg Tablet PO PRN (11:34)
[2024-11-23 17:13] LABS: HBV as IU/mL 200 IU/mL (.); Log 10 HBV as IU/mL 2.301 (.)
[2024-11-23] MEDS: Vancomycin 1 GM in Premix 1 BAG IVPB SCH (17:36)
[2024-11-24] MEDS: Aspirin 81 mg Enteric Coated Tablet PO SCH (08:43)
[2024-11-24 13:12] LABS: Hepatitis B little e Antibody Reactive (Negative)
[2024-11-24] MEDS: Linezolid 600 MG TAB PO SCH (20:40)
[2024-11-24] MEDS: Insulin Glargine 30 UNITS/0.3 ML VIAL SC SCH (20:41)
[2024-11-25 11:30] VITALS: BP 130/75; TEMP 98.2
== END 2024-11-25 16:13 | disposition home or self-care (01) | DRG 580 ==
LOC: ERS 18:21 → T4-B 22:29 → OBSVTOIN 11-15 14:50
PROVIDERS: ADMIT Internal Medicine; ATTEND Family Medicine
PROC: 0Y6N0ZF Detachment at Left Foot, Partial 5th Ray, Open Approach (ICD-10-PCS; principal; 2024-11-20)
DX: L03.116 Cellulitis of left lower limb (principal); N17.9 Acute kidney failure, unspecified; Q72.6 Longitudinal reduction defect of fibula; F17.210 Nicotine dependence, cigarettes, uncomplicated; E11.40 Type 2 diabetes mellitus with diabetic neuropathy, unspecified; R63.4 Abnormal weight loss; S90.425A Blister (nonthermal), left lesser toe(s), initial encounter; E11.51 Type 2 diabetes mellitus with diabetic peripheral angiopathy without gangrene; S90.852A Superficial foreign body, left foot, initial encounter; B19.20 Unspecified viral hepatitis C without hepatic coma; R79.89 Other specified abnormal findings of blood chemistry; N32.89 Other specified disorders of bladder
CPT/HCPCS: 36415; 36416; 74177; 80048; 80053; 80202; 82565; 83605; 85025; 86141; 86706; 86707; 86803; 87040; 87070; 87205; 87340; 87350; 87389; 87517; 88305; 88311; 93923; 96365; 96375; 96376; 97139; G0378; J0665; J0692; J1650; J1815; J1885; J2250; J2270; J2405; J2704; J3010; J3370; J3490; J7030; J7050; Q9967

== ENCOUNTER 2025-06-25 00:55 | Emergency (ER) | payer OTHER | END 2025-06-25 01:52 | disposition home or self-care (01) | LOC: ERS 00:55 | DX: E11.621 Type 2 diabetes mellitus with foot ulcer (principal); I10 Essential (primary) hypertension; F17.210 Nicotine dependence, cigarettes, uncomplicated | CPT/HCPCS: 99282 ==

== ENCOUNTER 2025-08-22 05:55 | Emergency (ER) | payer OTHER | END 2025-08-22 06:56 | disposition home or self-care (01) | LOC: ERS 05:55 | DX: L02.214 Cutaneous abscess of groin (principal); I10 Essential (primary) hypertension; E11.9 Type 2 diabetes mellitus without complications; F17.210 Nicotine dependence, cigarettes, uncomplicated; Z79.4 Long term (current) use of insulin | CPT/HCPCS: 99283 ==